=== PATIENT | male | born 1995 | race Caucasian/White ===

== ENCOUNTER 2016-12-16 18:03 | Emergency (ER) | payer MEDICAID | END 2016-12-16 19:21 | disposition home or self-care (01) | DX: S60.221A Contusion of right hand, initial encounter (principal); W22.8XXA Striking against or struck by other objects, initial encounter; Y92.018 Other place in single-family (private) house as the place of occurrence of the external cause; F17.200 Nicotine dependence, unspecified, uncomplicated ==